=== PATIENT | female | born 2000 | race African-American/Black ===

== ENCOUNTER 2024-07-05 18:22 | Emergency (ER) | payer OTHER ==
[2024-07-05 18:30] VITALS: BP 113/76; PULSE 82; RESP 20; TEMP 98.2; BMI 19.2
[2024-07-05] MEDS ORDERED: DIPHTH,PERTUSS(ACELL),TET 0.5 ML DISP.SYRIN IM ONE (20:12)
[2024-07-05] MEDS: DIPHTH,PERTUSS(ACELL),TET 0.5 ML DISP.SYRIN IM ONE (20:16)
== END 2024-07-05 21:15 | disposition home or self-care (01) ==
LOC: JERFT 18:22
PROC: 3E0234Z Introduction of Serum, Toxoid and Vaccine into Muscle, Percutaneous Approach (ICD-10-PCS; principal; 2024-07-05)
DX: S91.312A Laceration without foreign body, left foot, initial encounter (principal); W25.XXXA Contact with sharp glass, initial encounter; Z23 Encounter for immunization
CPT/HCPCS: 73630-TC-LT; 90471; 90715; 99284-25